=== PATIENT | female | born 1990 | race African-American/Black ===

== ENCOUNTER 2022-01-05 18:21 | Emergency (ER) | payer MEDICAID ==
[~2022-01-05] VITALS: Ht 167.6 cm; Wt 78.0 kg
[2022-01-05] MEDS ORDERED: ACETAMINOPHEN 325MG TABLET PO ONE (21:00)
[2022-01-05 21:30] LABS: BASOPHILS % 0.2 % (0.0-2.0); EOSINOPHILS % 1.8 % (0.0-5.0); HEMATOCRIT. 39.5 % (36.0-48.0); HEMOGLOBIN. 13.8 g/dL (12.0-16.0); LYMPHOCYTES % 21.1 % (20.0-50.0); MEAN CORPUSCULAR HEMOGLOBIN 30.9 pg (28.0-32.0); MEAN CORPUSCULAR VOLUME 88.3 fL (81.0-99.0); MEAN PLATELET VOLUME 8.5 fl (7.4-10.4); MONOCYTES % 6.1 % (2.0-8.0); NEUTROPHILS % 70.8 % (40.0-76.0); PLATELET 324 x1000/uL (130-400); RED BLOOD CELL COUNT 4.47 mill/uL (4.2-5.4)
[2022-01-05 21:32] LABS: CLARITY URINE CLEAR (CLEAR); COLOR URINE YELLOW (YELLOW); KETONES URINE TRACE (NEGATIVE); LEUKOCYTE ESTERASE URINE 1+ (NEGATIVE); NITRITE URINE NEGATIVE (NEGATIVE); OCCULT BLOOD URINE NEGATIVE (NEGATIVE); PH URINE 5.5 (4.5-8.0); PROTEIN URINE NEGATIVE (NEGATIVE); SPECIFIC GRAVITY URINE 1.023 (1.005-1.030)
[2022-01-05 21:37] LABS: CHLORIDE 103 mEq/L (98-107)
[2022-01-05 22:10] LABS: B-HCG QUANTITATIVE 34567 mIU/mL (<3)
[2022-01-05] MEDS ORDERED: CEPH500T MT (22:36)
[2022-01-05 22:47] VITALS: BP 121/78
== END 2022-01-05 22:48 | disposition home or self-care (01) ==
LOC: ER 18:21
DX: O23.11 Infections of bladder in pregnancy, first trimester (principal); Z3A.01 Less than 8 weeks gestation of pregnancy
CPT/HCPCS: 36415; 76801; 80053; 81003; 81025; 84702; 85025; 99284